=== PATIENT | male | born 2000 | race Caucasian/White ===

== ENCOUNTER 2019-05-02 18:05 | Emergency (ER) | payer SELFPAY ==
[2019-05-02] MEDS ORDERED: Tetracaine HCl/PF 0.5% 4 ML Bottle ONE (19:11)
[2019-05-02] MEDS ORDERED: Tetracaine HCl/PF 0.5% 4 ML Bottle EYEBOTH ONE (19:11)
--- NOTE | 2019-05-02 19:22 | EDM.PDOC ---
ED HPI GENERAL MEDICAL PROBLEM - General Chief Complaint: Eye Problems Stated Complaint: IRRITATION IN EYE Time Seen by Provider: 05/02/19 19:07 Source of Information: Reports: Patient History Limitations: Reports: No Limitations - History of Present Illness INITIAL COMMENTS - FREE TEXT/NARRATIVE: HISTORY OF PRESENT ILLNESS: Patient is a 18-year-old male who complains of 1 week history of left eye irritation and clear discharge. Does not wear contacts or glasses. Denies any blurred vision or painful eye. No history of STIs. Denies any trauma or suspicion of foreign body. Denies any chemical injury. Denies any fever or rash. REVIEW OF SYSTEMS: Other than the symptoms associated with the present events, the following is reported with regard to recent health: General: (-) fever. HENT: (+) congestion. Respiratory: (-) cough. Cardiovascular: (-) chest pain. GI: (-) abdominal pain. : (-) urinary complaints. Musculoskeletal: (-) other aches or pains. Skin: (-) rash PAST MEDICAL HISTORY: reviewed as per nursing notes SOCIAL HISTORY: reviewed as per nursing notes, MEDICATIONS: Per nurse's note ALLERGIES: Per nurse's note, reviewed by me PHYSICAL EXAMINATION: GENERALIZED APPEARANCE: well developed, well nourished in no distress VITAL SIGNS: Per nurse's note, reviewed by me SKIN: Warm, dry; (-) cyanosis; (-) rash. HEAD: (-) scalp swelling, (-) tenderness. EYES: (-) conjunctival pallor, (-) scleral icterus. left eye conjunctival injection. EOMI PERRL. no periorbital swelling. no active discharge. no papilledema or hemorrhage. fluorescein applied and viewed with wood's lamp: No uptake. ENMT: (-) stridor; mucous membranes moist. NECK: (-) tenderness, (-) stiffness, CHEST AND RESPIRATORY: (-) rales, (-) rhonchi, (-) wheezes; breath sounds equal bilaterally. HEART AND CARDIOVASCULAR: (-) irregularity; (-) murmur, (-) gallop. EXTREMITIES: (-) deformity, (-) edema. NEURO AND PSYCH: Alert. Cranial nerves grossly intact; HERNANDEZ x 4. gait steady EMERGENCY DEPARTMENT COURSE AND TREATMENT: Patient's condition remained stable during Emergency Department evaluation. The patient appears to have conjunctivitis. There is no trauma or FB by history. There is no corneal abrasion on fluorescein exam. A prescription for ophthalmic antibiotics was provided. After history, physical exam, and evaluation, I felt that outpatient management with close followup by the patient's primary care provider or microelectronics engineer in 1-2 days was appropriate. The patient's questions were answered, and discharge precautions and reasons to return to the ED were discussed. The patient understands to return to the ED if symptoms do not improve, or if symptoms worsen. PLAN AND FOLLOW-UP: Patient received written and verbal instructions regarding this condition. Return to ED immediately with any new or worsening symptoms. Follow up to be arranged by patient with pcp and microelectronics engineer in 1-2 days for further evaluation. Given discharge precautions. PAtient expressed verbal understanding. - Related Data Allergies Allergy/AdvReac Type Severity Reaction Status Date / Time No Known Allergies Allergy Verified 05/02/19 18:40 Home Meds: Home Meds Erythromycin Base [Erythromycin 0.5% Ophth Oint] 1 applic EYELF QID 5 Days #1 tube 05/02/19 [Rx] Past Medical History - Past Health History Medical/Surgical History: Denies Medical/Surgical History - Infectious Disease History Infectious Disease History: Reports: None Social & Family History - Family History Family Medical History: Noncontributory - Tobacco Use Smoking Status *Q: Never Smoker Second Hand Smoke Exposure: No - Caffeine Use Caffeine Use: Reports: Coffee - Recreational Drug Use Recreational Drug Use: No ED ROS GENERAL - Review of Systems Review Of Systems: See Below (see dictation) ED EXAM GENERAL W FULL EYE - Physical Exam Exam: See Below (see dictation) Course - Vital Signs Last Recorded V/S: Last Vital Signs Temp 98 F 05/02/19 18:40 Pulse 89 05/02/19 18:40 Resp 16 05/02/19 18:40 BP 129/72 05/02/19 18:40 Pulse Ox 97 05/02/19 18:40 - Orders/Labs/Meds Orders: Active Orders 24 hr Category Date Time Status Visual Acuity [Vision Test] [RC] ASDIRECTED Care 05/02/19 19:11 Active Meds: Medications Discontinued Medications Generic Name Dose Route Start Last Admin Trade Name Freq PRN Reason Stop Dose Admin Tetracaine HCl 1 ml 05/02/19 19:11 05/02/19 19:45 Tetracaine 0.5% Steri-Unit Maria G EYEBOTH 05/02/19 19:12 1 gm ASDIRECTED ONE Administration Tetracaine HCl Confirm 05/02/19 19:11 05/02/19 19:41 Tetracaine 0.5% Steri-Unit Maria G Administered 05/02/19 19:12 Not Given Dose 4 ml .ROUTE .STK-MED ONE Departure - Departure Time of Disposition: 19:18 Disposition: Home, Self-Care 01 Condition: Good Clinical Impression: Conjunctivitis Qualifiers: Laterality: left - Discharge Information *PRESCRIPTION DRUG MONITORING PROGRAM REVIEWED*: Not Applicable *COPY OF PRESCRIPTION DRUG MONITORING REPORT IN PATIENT JOSE: Not Applicable Prescriptions: Erythromycin Base [Erythromycin 0.5% Ophth Oint] 1 applic EYELF QID 5 Days #1 tube Instructions: Bacterial Conjunctivitis, How to Use Eye Drops and Eye Ointments Referrals: Geraldo Dias MD [Physician] - Kiara Grossman [Ordering Only Provider] - Forms: ED Department Discharge Additional Instructions: The following information is given to patients seen in the emergency department who are being discharged to home. This information is to outline your options for follow-up care. We provide all patients seen in our emergency department with a follow-up referral. The need for follow-up, as well as the timing and circumstances, are variable depending upon the specifics of your emergency department visit. If you don't have a primary care physician on staff, we will provide you with a referral. We always advise you to contact your personal physician following an emergency department visit to inform them of the circumstance of the visit and for follow-up with them and/or the need for any referrals to a consulting specialist. The emergency department will also refer you to a specialist when appropriate. This referral assures that you have the opportunity for follow-up care with a specialist. All of these measure are taken in an effort to provide you with optimal care, which includes your follow-up. Under all circumstances we always encourage you to contact your private physician who remains a resource for coordinating your care. When calling for follow-up care, please make the office aware that this follow-up is from your recent emergency room visit. If for any reason you are refused follow-up, please contact the [facility] Emergency Department at and asked to speak to the emergency department charge nurse. Sepsis Event Note - Evaluation Sepsis Screening Result: No Definite Risk - Focused Exam Vital Signs: Vital Signs Temp Pulse Resp BP Pulse Ox 05/02/19 18:40 98 F 89 16 129/72 97 Date Exam was Performed: 05/03/19 Time Exam was Performed: 04:14 - My Orders Last 24 Hours: My Active Orders 05/02/19 19:11 Visual Acuity [Vision Test] [RC] ASDIRECTED - Assessment/Plan Last 24 Hours: My Active Orders 05/02/19 19:11 Visual Acuity [Vision Test] [RC] ASDIRECTED
== END 2019-05-02 19:48 | disposition home or self-care (01) ==
LOC: MW.ED 18:05
DX: H10.9 Unspecified conjunctivitis (principal)
CPT/HCPCS: 99282